=== PATIENT | male | born 2000 | race Caucasian/White ===

== ENCOUNTER 2019-09-10 20:47 | Emergency (ER) | payer BC ==
[2019-09-10] MEDS ORDERED: Ketorolac 60 MG/2 ML SDV IM ONE (21:03)
--- NOTE | 2019-09-10 21:09 | EDM.PDOC ---
ED HPI GENERAL MEDICAL PROBLEM - General Chief Complaint: Lower Extremity Injury/Pain Stated Complaint: RT HIP HURTS Time Seen by Provider: 09/10/19 20:48 Source of Information: Reports: Patient History Limitations: Reports: No Limitations - History of Present Illness INITIAL COMMENTS - FREE TEXT/NARRATIVE: HISTORY AND PHYSICAL: History of present illness: Patient is a 18-year-old male presents to the ED today with concern of right hip injury that occurred earlier today at work. 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 Patient states he has been able to walk but has some pain with walking. Patient denies any prior injury to the hip or any other symptoms or concerns. Patient denies fever, chills, chest pain, shortness of breath, or cough. Denies headache, neck stiff ness, change in vision, syncope, or near syncope. Denies nausea, vomiting, abdominal pain, diarrhea, constipation, or dysuria. Has not noted any blood in urine or stool. Patient has been eating and drinking appropriately. Review of systems: As per history of present illness and below otherwise all systems reviewed and negative. Past medical history: As per history of present illness and as reviewed below otherwise noncontributory. Surgical history: As per history of present illness and as reviewed below otherwise noncontributory. Social history: See social history for further information Family history: As per history of present illness and as reviewed below otherwise noncontributory. Physical exam: General: Patient is alert, oriented, and in no acute distress. Patient sitting comfortably on exam table. HEENT: Atraumatic, normocephalic, pupils equal and reactive bilaterally, negative for conjunctival pallor or scleral icterus, mucous membranes moist, TMs normal bilaterally, throat clear, neck supple, nontender, trachea midline. No drooling or trismus noted. No meningeal signs. No hot potato voice noted. Lungs: Clear to auscultation, breath sounds equal bilaterally, chest nontender. Heart: S1S2, regular rate and rhythm without overt murmur Abdomen: Soft, nondistended, nontender. Negative for masses or hepatosplenomegaly. Negative for costovertebral tenderness. Pelvis: Stable nontender. Genitourinary: Deferred. Rectal: Deferred. Skin: Intact, warm, dry. No lesions or rashes noted. Extremities: Negative for cords or calf pain. Neurovascular unremarkable. There is some mild bruising of the right hip over the greater trochanter of the femur. Patient has full range of motion of the complete right and left lower extremities but does have pain with range of motion of the right hip. Dorsalis pedis and posterior tibial pulses are grossly intact with capillary refill less than 2 seconds of the right lower extremity. Neuro: Awake, alert, oriented. Cranial nerves II through XII unremarkable. Cerebellum unremarkable. Motor and sensory unremarkable throughout. Exam nonfocal. Notes: Discussed the importance for follow with primary care provider or orthopedic provider. Voices understanding and is agreeable to plan of care. Denies any further questions or concerns at this time. Diagnostics: Hip with pelvic x-ray Therapeutics: Toradol Prescription: Diclofenac Impression: Right hip injury Plan: 1. Rest, ice, elevate the affected extremity. You can apply ice 15 minutes on, 15 minutes off. 2. Tylenol as directed for pain management or discomfort. Take medication as prescribed 3. Follow up with the Orthopedic provider [facility] provider as discussed. Return to the ED as needed and as discussed. Definitive disposition and diagnosis as appropriate pending reevaluation and review of above. R hip Pain Score (Numeric/FACES): 7 - Related Data Allergies Allergy/AdvReac Type Severity Reaction Status Date / Time sulfamethoxazole Allergy Rash Verified 09/10/19 20:55 [From Bactrim] trimethoprim [From Bactrim] Allergy Rash Verified 09/10/19 20:55 Home Meds: Home Meds Venlafaxine [Effexor] 25 mg PO DAILY 09/10/19 [History] Past Medical History - Past Health History Medical/Surgical History: Denies Medical/Surgical History Psychiatric History: Reports: Anxiety, Depression Social & Family History - Family History Family Medical History: Noncontributory - Tobacco Use Second Hand Smoke Exposure: No - Caffeine Use Caffeine Use: Reports: Coffee, Energy Drinks, Soda - Recreational Drug Use Recreational Drug Use: Yes Recreational Drug Type: Reports: Marijuana/Hashish Review of Systems - Review of Systems Review Of Systems: ROS reveals no pertinent complaints other than HPI. ED EXAM, GENERAL - Physical Exam Exam: See Below (See dictation) Course - Vital Signs Last Recorded V/S: Last Vital Signs Temp 96 F 09/10/19 20:50 Pulse 85 09/10/19 20:50 Resp 17 09/10/19 20:50 BP 136/71 09/10/19 20:50 Pulse Ox 95 09/10/19 20:50 - Orders/Labs/Meds Meds: Medications Discontinued Medications Generic Name Dose Route Start Last Admin Trade Name Christine PRN Reason Stop Dose Admin Ketorolac Tromethamine 60 mg 09/10/19 21:03 Toradol IM 09/10/19 21:04 ONETIME ONE Departure - Departure Time of Disposition: 21:42 Disposition: Home, Self-Care 01 Clinical Impression: Injury of right hip Qualifiers: Encounter type: initial encounter Qualified Code(s): S79.911A - Unspecified injury of right hip, initial encounter - Discharge Information Referrals: Iglesia Carolina MD [Primary Care Provider] - Forms: ED Department Discharge Additional Instructions: The following information is given to patients seen in the emergency department who are being discharged to home. This information is to outline your options for follow-up care. We provide all patients seen in our emergency department with a follow-up referral. The need for follow-up, as well as the timing and circumstances, are variable depending upon the specifics of your emergency department visit. If you don't have a primary care physician on staff, we will provide you with a referral. We always advise you to contact your personal physician following an emergency department visit to inform them of the circumstance of the visit and for follow-up with them and/or the need for any referrals to a consulting specialist. The emergency department will also refer you to a specialist when appropriate. This referral assures that you have the opportunity for follow-up care with a specialist. All of these measure are taken in an effort to provide you with optimal care, which includes your follow-up. Under all circumstances we always encourage you to contact your private physician who remains a resource for coordinating your care. When calling for follow-up care, please make the office aware that this follow-up is from your recent emergency room visit. If for any reason you are refused follow-up, please contact the [facility] Emergency Department at and asked to speak to the emergency department charge nurse. [facility] [address] [place] [id number] [facility] [address] [place] [address] [facility] - [facility]opedic Clinic Professional [facility] [address] [facility] [place] [address] Dr Hall, Orthoped[facility] [address] [place] [address] Dr Baker - Dr Cardenas - Dr Goel [facility] [address] [place] [address] [facility] [address] [place] [address] 1. Follow up with her primary care provider as discussed. 2. Return to the ED as needed and as discussed. 3. Medically screened for incarceration.
--- NOTE | 2019-09-10 21:40 | CR ---
Indication: Right hip injury Technique: Frontal view pelvis, two-view right hip Comparison: None Findings: Bones: Alignment is normal. No fractures or bone lesions. Joint spaces: Unremarkable. Soft tissues: Unremarkable. Impression: Negative. Dictated by Berna Sharma MD @ Sep 10 2019 9:37PM Signed by Dr. Berna Sharma @ Sep 10 2019 9:38PM
[2019-09-10 22:03] VITALS: BP 142/68; PULSE 87
== END 2019-09-10 22:07 | disposition home or self-care (01) ==
LOC: MW.ED 20:47
DX: S70.01XA Contusion of right hip, initial encounter (principal); F41.9 Anxiety disorder, unspecified; F32.9 Major depressive disorder, single episode, unspecified; Z88.1 Allergy status to other antibiotic agents; Z79.899 Other long term (current) drug therapy; W22.09XA Striking against other stationary object, initial encounter; Y93.89 Activity, other specified; Y99.0 Civilian activity done for income or pay
CPT/HCPCS: 73502; 96372; 99283; J1885

== ENCOUNTER 2024-03-26 07:25 | Emergency (ER) | payer SELFPAY ==
[2024-03-26 07:47] VITALS: BP 139/76; PULSE 75
[2024-03-26] MEDS ORDERED: Sodium Chloride 0.9% 10 ML Syringe FLUSH PRN (08:33)
[2024-03-26] MEDS ORDERED: Sodium Chloride 0.9% 2.5 ML Syringe FLUSH PRN (08:33)
[2024-03-26 08:51] LABS: CORONAVIRUS COVID-19 NAA NEGATIVE (NEGATIVE); INFLUENZA A NAA NEGATIVE (NEGATIVE); INFLUENZA B NAA NEGATIVE (NEGATIVE); RESPIRATORY SYNCYTIAL VIR NAA NEGATIVE (NEGATIVE)
[2024-03-26] MEDS: Sodium Chloride 0.9% 1,000 ML IV ONE (13:18)
== END 2024-03-26 08:46 | disposition left against medical advice (07) ==
LOC: MW.ED 07:25
DX: B34.9 Viral infection, unspecified (principal); Z88.2 Allergy status to sulfonamides; Z79.899 Other long term (current) drug therapy
CPT/HCPCS: 0241U; 99284; 99282